=== PATIENT | female | born 1975 | race Caucasian/White ===

== ENCOUNTER → 2017-07-09 | Outpatient (CLI) | payer OTHER ==
[2017-07-09 11:17] LABS: BASOPHILS ABSOLUTE AUTO 0.02 K/mm3 (0.00-0.23); BASOPHILS PERCENT AUTO 1 % (0-2); EOSINOPHILS ABSOLUTE AUTO 0.09 K/mm3 (0.00-0.68); EOSINOPHILS PERCENT AUTO 2 % (0-6); Hematocrit 34.5 % (33.0-51.0); Hemoglobin 11.1 g/dL (11.5-16.0); IMMATURE GRAN PERCENT AUTO 0 % (0-1); LYMPHOCYTES ABSOLUTE AUTO 1.33 K/mm3 (0.84-5.20); LYMPHOCYTES PERCENT AUTO 32 % (21-46); MONOCYTES PERCENT AUTO 7 % (4-13); Mean Corpuscular HGB 27.4 pg (26.0-34.0); Mean Corpuscular HGB Conc 32.2 g/dL (31.5-36.5); Mean Corpuscular Volume 85 fL (80-100); Mean Platelet Volume 10.3 fL (9.1-12.4); NEUTROPHILS ABSOLUTE AUTO 2.44 K/mm3 (1.96-9.15); NEUTROPHILS PERCENT AUTO 58 % (41-73); Platelet Count 225 K/mm3 (150-400); RDW Coefficient Variation 12.9 % (11.7-14.2); RDW Standard Deviation 39.9 fL (35.1-46.3); Red Blood Cell Count 4.05 M/mm3 (3.80-5.20); White Blood Cell Count 4.18 K/mm3 (4.00-11.30)
[2017-07-09 11:32] LABS: Alanine Aminotransfer (ALT/SGP 23 U/L (12-78); Albumin, Blood 3.8 g/dL (3.4-5.0); Albumin/Globulin Ratio 1.1 (0.8-1.8); Alk Phos 54 U/L (40-126); Anion Gap 9 mmol/L (6-16); Aspartate Aminotrans (AST/SGOT 17 U/L (12-37); Bilirubin, Total 0.5 mg/dL (0.1-1.0); Blood Urea Nitrogen 14 mg/dL (8-24); Bun/Creatinine Ratio 17.9 (12.0-20.0); CO2, Blood 26 mmol/L (21-32); Calcium, Blood 9.1 mg/dL (8.5-10.1); Chloride, Blood 105 mmol/L (98-108); Creatinine, Blood 0.78 mg/dL (0.40-1.00); Globulin, Blood 3.4 g/dL (2.2-4.0); Glomerular Filtration Rate >60 (60-); Glucose, Blood 108 mg/dL (70-99); Potassium, Blood 3.6 mmol/L (3.5-5.5); Sodium, Blood 140 mmol/L (136-145); Total Protein, Blood 7.2 g/dL (6.4-8.2)
== END ==
LOC: LAB EV 11:13
PROVIDERS: Physician Assistant
DX: R10.11 Right upper quadrant pain (principal)
CPT/HCPCS: 80053; 83690; 85025

== ENCOUNTER → 2017-11-15 | Outpatient (CLI) | payer OTHER ==
[2017-11-15 16:11] LABS: BASOPHILS ABSOLUTE AUTO 0.03 K/mm3 (0.00-0.23); BASOPHILS PERCENT AUTO 0 % (0-2); EOSINOPHILS ABSOLUTE AUTO 1.58 K/mm3 (0.00-0.68); EOSINOPHILS PERCENT AUTO 23 % (0-6); Hematocrit 37.9 % (33.0-51.0); Hemoglobin 12.8 g/dL (11.5-16.0); IMMATURE GRAN ABSOLUTE AUTO 0.02 K/mm3 (0.00-0.10); IMMATURE GRAN PERCENT AUTO 0 % (0-1); LYMPHOCYTES ABSOLUTE AUTO 1.19 K/mm3 (0.84-5.20); LYMPHOCYTES PERCENT AUTO 17 % (21-46); MONOCYTES ABSOLUTE AUTO 0.35 K/mm3 (0.16-1.47); MONOCYTES PERCENT AUTO 5 % (4-13); Mean Corpuscular HGB 30.5 pg (26.0-34.0); Mean Corpuscular HGB Conc 33.8 g/dL (31.5-36.5); Mean Corpuscular Volume 90 fL (80-100); Mean Platelet Volume 10.7 fL (9.1-12.4); NEUTROPHILS ABSOLUTE AUTO 3.84 K/mm3 (1.96-9.15); NEUTROPHILS PERCENT AUTO 55 % (41-73); Platelet Count 198 K/mm3 (150-400); RDW Standard Deviation 49.8 fL (35.1-46.3); White Blood Cell Count 7.01 K/mm3 (4.00-11.30)
[2017-11-15 16:33] LABS: Alanine Aminotransfer (ALT/SGP 21 U/L (12-78); Albumin, Blood 3.7 g/dL (3.4-5.0); Albumin/Globulin Ratio 1.2 (0.8-1.8); Alk Phos 68 U/L (40-126); Anion Gap 10 mmol/L (6-16); Aspartate Aminotrans (AST/SGOT 19 U/L (12-37); Bilirubin, Total 0.2 mg/dL (0.1-1.0); Blood Urea Nitrogen 10 mg/dL (8-24); Bun/Creatinine Ratio 12.8 (12.0-20.0); CO2, Blood 26 mmol/L (21-32); Calcium, Blood 8.7 mg/dL (8.5-10.1); Chloride, Blood 105 mmol/L (98-108); Creatinine, Blood 0.78 mg/dL (0.40-1.00); Globulin, Blood 3.2 g/dL (2.2-4.0); Glomerular Filtration Rate >60 (60-); Glucose, Blood 107 mg/dL (70-99); Potassium, Blood 3.4 mmol/L (3.5-5.5); Sodium, Blood 141 mmol/L (136-145); Thyroid Stimulating Hormone 1.035 uIU/mL (0.360-4.800); Total Protein, Blood 6.9 g/dL (6.4-8.2)
== END | disposition home or self-care (01) ==
LOC: LAB SHORT 16:08 → LAB EV 16:08
PROVIDERS: Physician Assistant
DX: R10.84 Generalized abdominal pain (principal); R53.83 Other fatigue
CPT/HCPCS: 80053; 83690; 84443; 85025

== ENCOUNTER → 2021-03-24 | Outpatient (CLI) | payer OTHER | END | disposition home or self-care (01) | LOC: LAB SHORT 16:50 → LAB 16:50 | DX: J02.9 Acute pharyngitis, unspecified (principal) | CPT/HCPCS: 87081 ==

== ENCOUNTER 2021-04-15 09:42 | Day surgery (SDC) | payer OTHER ==
[~2021-04-15] VITALS: Ht 165.1 cm; Wt 65.5 kg
[~2021-04-15 09:42] MED LIST: ALBU8HFA2; OMEGA-3 FISH O1 EAC6 PO
== END 2021-04-15 11:49 | disposition home or self-care (01) ==
LOC: ORSCSDS 09:42
PROVIDERS: Student in an Organized Health Care Education/Training Program
PROC: 0DB98ZX Excision of Duodenum, Via Natural or Artificial Opening Endoscopic, Diagnostic (ICD-10-PCS; principal; 2021-04-15 11:00)
PROC: 0DBE8ZX Excision of Large Intestine, Via Natural or Artificial Opening Endoscopic, Diagnostic (ICD-10-PCS; principal; 2021-04-15 11:00)
PROC: 0DB78ZX Excision of Stomach, Pylorus, Via Natural or Artificial Opening Endoscopic, Diagnostic (ICD-10-PCS; principal; 2021-04-15 11:00)
DX: R10.13 Epigastric pain (principal); R10.84 Generalized abdominal pain; R19.7 Diarrhea, unspecified; Z79.899 Other long term (current) drug therapy
CPT/HCPCS: 88305; 88342; J2250; J2704; J7120

== ENCOUNTER 2024-06-21 09:23 | Day surgery (SDC) | payer OTHER ==
[2024-06-21] VITALS (9 sets, daily range): BP systolic 95–112; BP diastolic 45–62
[~2024-06-21] VITALS: Ht 165.1 cm; Wt 60.1 kg
[~2024-06-21 09:23] MED LIST changes: -ALBU8HFA2; +ALBU90OI INH; +ALPR.25 PO; +HYDCOR2.5C PR
[2024-06-21] MEDS ORDERED: Ampicillin Sod/Sulbactam Sod 3 GM in NS 100 ML IV SCH (09:30)
[2024-06-21] MEDS ORDERED: Lactated Ringer's 1,000 ML IV SCH (09:30)
--- NOTE | 2024-06-21 10:33 | NUR ---
[facility]TO [facility]. HISTORY AND ALLERGIES REVIEWED. LUNGS CLEAR-SATS 100% ON RA. PT DENIES SOB. NPO STATUS CONFIRMED. PT DAUGHTER ODALIS IS HER RIDE HOME. PT PHONE GIVEN TO ODALIS-CLOTHING, SHOES, AND GLASSES IN BELONGINGS BAG UNDER [employer].
[2024-06-21] MEDS ORDERED: propofoL 20 ML IV ONE (11:25)
[2024-06-21] MEDS ORDERED: Dexamethasone Sod Phos 10 MG/ML 1ML VIAL ONE (11:26)
[2024-06-21] MEDS ORDERED: Ondansetron HCl 2 MG / ML 2ML Vial ONE (11:26)
[2024-06-21] MEDS ORDERED: FentaNYL Citrate 50 MCG/ML 2 ML Injection ONE (11:26)
[2024-06-21] MEDS ORDERED: Ketorolac Tromethamine 30mg Vial ONE (11:26)
[2024-06-21] MEDS ORDERED: Midazolam HCl 1MG / ML 2ML Vial ONE (11:29)
[2024-06-21] MEDS ORDERED: Midazolam HCl 1MG / ML 2ML Vial IV ONE (11:30)
[2024-06-21] MEDS ORDERED: Lidocaine 1%-Epineph 1:100000 20 ML MDV INJ ONE ×2 (11:51)
[2024-06-21] MEDS ORDERED: Triple Antibiotic Ointment 30 gm ONE (11:58)
[2024-06-21] MEDS ORDERED: OxyCODONE HCL 5 MG TAB PO PRN (12:55)
--- NOTE | 2024-06-21 13:07 | NUR ---
REPORT RECEIVED FROM ABHAY NUNEZ. VSS. PT ON RA. PT A&OX4. PT ABLE TO REPOSITION SELF IN BED. PT REQUESTING PO FOOD AND FLUIDS AND TOLERATING THEM WELL. PT DENIES PAIN OR NAUSEA. PT HAS GAUZE/ MESH UNDERWEAR IN PLACE OVER SURG SITE THAT IS C/D/I WITHOUT DRAINAGE, REDNESS OR SWELLING.
--- NOTE | 2024-06-21 13:31 | NUR ---
Patient up to Ambulate independently. Gait steady. VSS AND CONSISTENT WITH PT BASELINE. PT HAS NO COMPLAINTS AND VERBALIZES READINESS TO GO HOME. Discharge instructions reviewed with patient. Patient verbalizes understanding. Copy given to patient to take home. Dressing to procedure site clean, dry, intact with no visible drainage, swelling, erythema or bruising noted. Patient States Post-Procedure ride home has been arranged. Discharged via wheelchair to private car for ride home. PT BELONGINGS RETURNED TO PT.
== END 2024-06-21 13:30 | disposition home or self-care (01) ==
LOC: ORSCMMR 09:23 → ORD 10:45 → ORSCMMR 13:30
PROVIDERS: Surgery
PROC: 06BY0ZC Excision of Hemorrhoidal Plexus, Open Approach (ICD-10-PCS; principal; 2024-06-21 11:00)
DX: K64.8 Other hemorrhoids (principal); K64.4 Residual hemorrhoidal skin tags; Z79.899 Other long term (current) drug therapy
CPT/HCPCS: 88304; A9270; J0295; J1100; J1885; J2250; J2405; J2704; J3010; J7120

== ENCOUNTER → 2025-04-21 | Outpatient (CLI) | payer OTHER ==
[2025-04-21 12:58] LABS: Source, Urine Clean Catch
[2025-04-21 14:12] LABS: Bilirubin, Urine Neg (Neg); Glucose Qualitative, Urine Neg (Neg); Ketones, Urine Neg (Neg); Leukocyte Esterase, Urine Neg (Neg); Protein, Urine Neg (Neg); Specific Gravity, Urine 1.005 (1.003-1.022); Urobilinogen, Urine NORM (Normal)
[2025-04-21 14:32] LABS: Color, Urine Pale Yellow (P-Yellow)
[2025-04-21 15:08] LABS: Bacterial Vaginosis PCR Negative (NEGATIVE); Candida Group, PCR NOT DETECTED (NOT DETECT); Candida glabrata-krusei, PCR NOT DETECTED (NOT DETECT)
== END | disposition home or self-care (01) ==
LOC: LAB 08:01 → LAB SHORT 08:01
PROVIDERS: Obstetrics & Gynecology
DX: Z01.812 Encounter for preprocedural laboratory examination (principal); N76.0 Acute vaginitis
CPT/HCPCS: 81003; 81515

== ENCOUNTER 2025-05-05 08:42 | Day surgery (SDC) | payer OTHER ==
[2025-05-05] VITALS (12 sets, daily range): BP systolic 96–110; BP diastolic 48–61
[~2025-05-05] VITALS: Ht 167.6 cm; Wt 62.6 kg
--- NOTE | 2025-05-05 09:12 | NUR ---
Ambulatory in Day Surgery. Pre-Op teaching done. Pt verbalizes understanding. History, Chart, Medications and Allergies reviewed before start of procedure. Patient confirms NPO status and agrees with scheduled surgery. Patient States Post-Procedure ride home has been arranged.
--- NOTE | 2025-05-05 09:13 | NUR ---
NECKLACE REMOVED AND GIVEN TO VISITOR.
[2025-05-05] MEDS ORDERED: FentaNYL Citrate 50 MCG/ML 2 ML Injection ONE (09:46)
[2025-05-05] MEDS ORDERED: Rocuronium Bromide 10 MG/ML 5ML Injection IV ONE (09:46)
[2025-05-05] MEDS ORDERED: Bupivacaine 0.25% Epi 1:200000 30 ML Vial ONE (09:54)
[2025-05-05] MEDS ORDERED: Ondansetron HCl 2 MG / ML 2ML Vial ONE (10:12)
[2025-05-05] MEDS ORDERED: Dexamethasone Sod Phos 10 MG/ML 1ML VIAL ONE (10:12)
[2025-05-05] MEDS ORDERED: FentaNYL Citrate 50 MCG/ML 2 ML Injection IV PRN ×2 (10:40)
[2025-05-05] MEDS ORDERED: Metoclopramide HCl 5MG / ML 2ML Vial IV PRN (10:40)
[2025-05-05] MEDS ORDERED: HYDROmorphone HCl/Pf 1MG SYR IV PRN ×2 (10:40)
[2025-05-05] MEDS ORDERED: Albuterol 2.5 MG/3 ML VIAL INH PRN (10:40)
[2025-05-05] MEDS ORDERED: Glycopyrrolate 0.2 MG/ML 5ML VIAL ONE (11:25)
[2025-05-05] MEDS ORDERED: HYDROmorphone HCl/Pf 1MG SYR ONE (11:26)
[2025-05-05] MEDS ORDERED: Ketorolac Tromethamine 30mg Vial ONE (12:04)
[2025-05-05] MEDS ORDERED: OxyCODONE 5 mg/Acetamin 325 mg TABLET PO PRN (13:30)
[2025-05-05] MEDS ORDERED: Ondansetron HCl 2 MG / ML 2ML Vial IV PRN (13:30)
--- NOTE | 2025-05-05 14:11 | NUR ---
DISCHARGE NOTE PT A&OX4, VSS, PAIN CONTROLLED C PAIN MEDICATION, NO COMPLAINTS OF NAUSEA. PT TOLERATING PO INTAKE. SO AT BEDSIDE. Patient up to Ambulate independently. Gait steady. PT TO BR PRIOR TO DISCHARGE AND VOIDED, SCANT AMOUNT OF BLOODY DRAINAGE TO JORGE A PAD. Discharge instructions reviewed with patient. Patient verbalizes understanding. Copy given to patient to take home. Dressing to procedure site clean, dry, intact with no visible drainage, swelling, erythema or bruising noted. Discharged via wheelchair to private car for ride home.
== END 2025-05-05 14:15 | disposition home or self-care (01) ==
LOC: ORSCMMR 08:42 → ORD 10:00 → ORSCMMR 14:15
DX: D27.1 Benign neoplasm of left ovary (principal); N92.0 Excessive and frequent menstruation with regular cycle; N76.0 Acute vaginitis; J45.909 Unspecified asthma, uncomplicated; F41.9 Anxiety disorder, unspecified; Z79.899 Other long term (current) drug therapy; Z87.891 Personal history of nicotine dependence
CPT/HCPCS: 88108; 88305; 88341; 88342; A9270; J1100; J1171; J1885; J2405; J2704; J3010; J7120

== ENCOUNTER → 2025-05-19 | Outpatient (CLI) | payer OTHER ==
[2025-05-19 11:59] LABS: Source, Urine Clean Catch
[2025-05-19 13:17] LABS: Bilirubin, Urine Neg (Neg); Glucose Qualitative, Urine Neg (Neg); Ketones, Urine Neg (Neg); Leukocyte Esterase, Urine Neg (Neg); Protein, Urine Neg (Neg); Specific Gravity, Urine 1.010 (1.003-1.022); Urobilinogen, Urine NORM (Normal)
[2025-05-19 13:49] LABS: Color, Urine Pale Yellow (P-Yellow)
== END ==
LOC: LAB SHORT 11:58 → LAB 11:58
PROVIDERS: Obstetrics & Gynecology
DX: R30.0 Dysuria (principal)
CPT/HCPCS: 81001; 87086